=== PATIENT | female | born 1975 | race Caucasian/White ===

== ENCOUNTER → 2017-11-29 08:51 | Outpatient (CLI) | payer OTHER, SELFPAY ==
[2017-11-29 10:43] LABS: Alanine Aminotransferase 32 IU/L (9-52); Albumin 3.9 g/dL (3.5-5.0); Albumin Globulin Ratio 1.4 (1.0-2.8); Alkaline Phosphatase 71 U/L (38-126); Aspartate Aminotransferase 21 IU/L (14-36); Bilirubin Total 0.5 mg/dL (0.2-1.3); Blood Urea Nitrogen 12 mg/dL (7-17); Calcium 8.7 mg/dL (8.4-10.2); Carbon Dioxide 27 mmol/L (22-32); Chloride 103 mmol/L (98-107); Cholesterol 192 mg/dL (140-199); Estimated Glomerular Filt Rate > 60.0 mL/min (>60); Globulin 2.8 g/dL (1.7-4.1); Glucose 97 mg/dL (70-100); HDL Cholesterol 67 mg/dL (40-60); HEMOLYSIS < 15 (0-50); LDL Cholesterol Calculated 112 mg/dL (<100); Potassium 4.2 mmol/L (3.4-5.1); Sodium 139 mmol/L (137-145); Total Protein 6.7 g/dL (6.3-8.2); Triglycerides 64 mg/dL (35-150)
[2017-11-29 10:59] LABS: Free T3, Triiodothyronine Free 3.13 pg/mL (2.77-5.27); Free T4, Direct Thyroxine 0.85 ng/dL (0.78-2.19)
[2017-11-29 11:13] LABS: Ferritin 31.4 ng/mL (6.27-137); Thyroid Stimulating Hormone 0.84 uIU/mL (0.47-4.68)
[2017-11-30 15:34] LABS: Triiodothyronine T3 Total 114 ng/dL (76-181)
== END ==
PROVIDERS: PCP Physician Assistant; Visit Provider Physician Assistant
DX: Z00.00 Encounter for general adult medical examination without abnormal findings (principal); E03.9 Hypothyroidism, unspecified; Z51.81 Encounter for therapeutic drug level monitoring
CPT/HCPCS: 36415; 80053; 80061; 82728; 84439; 84443; 84480; 84481

== ENCOUNTER → 2018-01-03 12:55 | Outpatient (CLI) | payer OTHER, SELFPAY ==
[2018-01-03 13:37] LABS: Add Manual Diff / Slide Review NO; Basophils Percent Auto 0.6 % (0-2); Eosinophils Percent Auto 2.1 % (2-4); Hematocrit 43.1 % (36-46); Hemoglobin 14.6 g/dL (12.0-16.0); Lymphocytes Percent Auto 28.1 % (25-40); Mean Corpuscular HGB Conc 33.8 % (30-36); Mean Corpuscular Volume 94.7 fL (80-100); Monocytes Percent Auto 6.2 % (3-14); Neutrophils Absolute Auto 4700 /uL (3000-5900); Platelet Count 272 X10^3/uL (150-400); Red Blood Cell Count 4.55 X10^6/uL (4.0-5.2); Red Cell Distribution Width 13.3 % (11.6-14.8); White Blood Cell Count 7.5 X10^3/uL (4.5-11.0)
[2018-01-03 14:33] LABS: HEMOLYSIS < 15 (0-50); Iron 51 ug/dL (37-170)
[2018-01-03 14:36] LABS: Alanine Aminotransferase 27 IU/L (9-52); Albumin Globulin Ratio 1.4 (1.0-2.8); Alkaline Phosphatase 101 U/L (38-126); Aspartate Aminotransferase 22 IU/L (14-36); BUN Creatinine Ratio 23.8 (6-22); Bilirubin Total 0.4 mg/dL (0.2-1.3); Blood Urea Nitrogen 19 mg/dL (7-17); Calcium 8.8 mg/dL (8.4-10.2); Carbon Dioxide 26 mmol/L (22-32); Chloride 102 mmol/L (98-107); Estimated Glomerular Filt Rate > 60.0 mL/min (>60); Globulin 2.9 g/dL (1.7-4.1); Glucose 147 mg/dL (70-100); HEMOLYSIS < 15 (0-50); Potassium 3.7 mmol/L (3.4-5.1); Sodium 139 mmol/L (137-145); Total Protein 6.9 g/dL (6.3-8.2)
[2018-01-03 14:44] LABS: Percent Iron Saturation 14 % (15-50); Total Iron Binding Capacity 354 ug/dL (265-497); Transferrin 287 mg/dL (206-381)
[2018-01-03 15:05] LABS: Thyroid Stimulating Hormone 0.82 uIU/mL (0.47-4.68)
== END ==
PROVIDERS: Visit Provider Physician Assistant
DX: R53.83 Other fatigue (principal); N92.0 Excessive and frequent menstruation with regular cycle; R03.0 Elevated blood-pressure reading, without diagnosis of hypertension
CPT/HCPCS: 36415; 80053; 82728; 83540; 83550; 84443; 85025

== ENCOUNTER → 2018-01-04 09:30 | Outpatient (CLI) | payer OTHER, SELFPAY ==
[2018-01-04 16:02] LABS: Hemoglobin A1C% w Est Avg Glu 5.3 % (4.0-6.0)
== END ==
PROVIDERS: Family Provider Physician Assistant; PCP Physician Assistant; Visit Provider Physician Assistant
DX: R73.09 Other abnormal glucose (principal)
CPT/HCPCS: 83036

== ENCOUNTER → 2019-02-09 09:25 | Outpatient (CLI) | payer OTHER, SELFPAY ==
[2019-02-09 09:53] LABS: Hematocrit 44.4 % (36-46); Hemoglobin 15.2 g/dL (12.0-16.0); Mean Corpuscular HGB Conc 34.2 % (30-36); Mean Corpuscular Hemoglobin 31.8 PG (26-34); Mean Corpuscular Volume 92.9 fL (80-100); Platelet Count 317 X10^3/uL (150-400); Red Blood Cell Count 4.77 X10^6/uL (4.0-5.2); Red Cell Distribution Width 13.6 % (11.6-14.8); White Blood Cell Count 6.7 X10^3/uL (4.5-11.0)
[2019-02-09 10:07] LABS: Alanine Aminotransferase 40 IU/L (9-52); Albumin 3.9 g/dL (3.5-5.0); Albumin Globulin Ratio 1.3 (1.0-2.8); Alkaline Phosphatase 75 U/L (38-126); Aspartate Aminotransferase 33 IU/L (14-36); BUN Creatinine Ratio 23.3 (6-22); Bilirubin Total 0.7 mg/dL (0.2-1.3); Blood Urea Nitrogen 14 mg/dL (7-17); Calcium 8.9 mg/dL (8.4-10.2); Carbon Dioxide 27 mmol/L (22-32); Chloride 105 mmol/L (98-107); Cholesterol 222 mg/dL (140-199); Estimated Glomerular Filt Rate > 60.0 mL/min (>60); Glucose 109 mg/dL (70-100); HDL Cholesterol 45 mg/dL (40-60); HEMOLYSIS < 15 (0-50); LDL Cholesterol Calculated 156 mg/dL (<100); Sodium 137 mmol/L (137-145); Total Protein 6.9 g/dL (6.3-8.2); Triglycerides 106 mg/dL (35-150)
[2019-02-09 10:22] LABS: Creatinine Urine Random 166.3 mg/dL
== END ==
PROVIDERS: PCP Nurse Practitioner Family; Visit Provider Nurse Practitioner Family
DX: I10 Essential (primary) hypertension (principal); Z13.6 Encounter for screening for cardiovascular disorders; Z68.39 Body mass index [BMI] 39.0-39.9, adult
CPT/HCPCS: 36415; 80053; 80061; 82043; 82570; 85027

== ENCOUNTER 2019-05-25 07:21 | Day surgery (SDC) | payer OTHER, SELFPAY ==
[2019-05-23 13:34] VITALS: BMI 38.9
--- NOTE | 2019-05-25 | PATH_ITS ---
[facility] Accession Number: [id number] . 01 Material submitted: . endometrium - ENDOMETRIAL BIOPSY . 02 Diagnosis: Endometrial biopsy: Portions of weakly proliferative endometrium with patchy stromal breakdown; negative for glandular hyperplasia, cytologic atypia or malignancy. [facility] 05/28/2019 1006 Local . 02 Electronically signed: . Leah Correa MD, Pathologist NPI- [id number] . 01 Gross description: . ENDOMETRIAL BIOPSY: Received in formalin are minute fragments of mucoid and hemorrhagic material measuring 0.7 x 0.7 x 0.2 cm in aggregate. Submitted in toto in 1 cassette. /DM 05/25/20192013 Local . 02 Pathologist provided ICD-10: N85.00 . 02 CPT . 591274 Performed at: [address] [facility] [address] [id number] MD David Moore MD Phone: [phone] Performed at: 02 [facility] [address] [place], [place] [id number] MD Pat Stoddard MD Phone: [phone]
[2019-05-25 07:47] VITALS: BP 123/77; PULSE 81; RESP 20; TEMP 36.3; O2SAT 97; BMI 37.2
[2019-05-25] MEDS: LACTATED RINGERS 1,000 ML 42 ML IV (07:56)
--- NOTE | 2019-05-25 08:16 | PM.PREOP ---
Pre-operative Note Interval Note History & Physical reviewed/Exam performed by Physician: Yes Changes to H&P: No
--- NOTE | 2019-05-25 08:51 | SUR.OPER ---
Lithotomy on padded OR bed, head on pillow, arms secured on padded arm boards at <90 degrees abduction. Legs secured in padded yellow fins stirrups.
[2019-05-25 09:11] VITALS: BP 138/91; PULSE 84; RESP 21; O2SAT 93
[2019-05-25 09:16] VITALS: BP 123/87; PULSE 81; RESP 8; O2SAT 95
--- NOTE | 2019-05-25 09:20 | PM.GYNOP.1 ---
Operative Date/Time/Diagnoses Date of procedure: 05/25/19 Time of procedure: 08:45 Pre-op diagnosis: abnormal uterine bleeding Post-op diagnosis: same Procedure & Clinicians Procedure: Procedures Operation Date: 05/25/19 08:45 Actual Procedures Side Surgeon p Exam Under Anesthesia TRUST MANAGER, endometrial biopsy MD lilli Melendrez Mirena Intrauterine Device Insertion Germaine Gonzales MD Indications: Abnormal uterine bleeding Surgeon: Germaine Gonzales Anesthesia Type: Sedation Operative Notes Findings: Retroverted, retroflexed uterus. Otherwise normal-appearing cervix, vagina, vulva. Mild cystocele. Specimen(s): endometrial curettings Applied: device(s) (Mirena IUD) Estimated blood loss (mL): 5 Procedure in detail: After informed consent was obtained, the patient taken to the operating room where IV sedation was placed. She was placed in the dorsal lithotomy position, an exam under anesthesia was performed, and a right angle retractor placed in the posterior fourchette. The cervix was visualized on the anterior wall of the vagina. It was prepped with Betadine, and a tenaculum used to grasp the anterior lip of the cervix. An endometrial biopsy curette was used to obtain a sampling of the endometrial tissue with 3 passes. The uterus was sounded during this process symptom 9 cm. Mirena IUD insertion device was used to place the Mirena IUD at the uterine fundus without complication. The strings were trimmed to 2 cm. The tenaculum was removed from the cervix with good hemostasis noted. The retractor was removed from the vagina. The patient tolerated the procedure well was taken to PACU in stable condition. Complications: none Post-operative Condition: stable Disposition: PACU Plan for aftercare: Routine post IUD insertion care
[2019-05-25 09:22] VITALS: BP 122/78; PULSE 83; RESP 22; O2SAT 96
[2019-05-25 09:32] VITALS: BP 123/80; PULSE 74; RESP 20; TEMP 36.3; O2SAT 97
[2019-05-25 09:41] VITALS: BP 122/80; PULSE 75; RESP 18; TEMP 36.1; O2SAT 99
--- NOTE | 2019-05-25 09:59 | SUR.PHASEII ---
Gave patient & discharge instructions per Doctor.
== END 2019-05-25 10:01 | disposition home or self-care (01) ==
PROVIDERS: PCP Nurse Practitioner Family; Visit Provider Obstetrics & Gynecology
PROC: (CPT 57410; principal; 2019-05-25 08:45)
PROC: (CPT 58100; 2019-05-25 08:45)
DX: N85.00 Endometrial hyperplasia, unspecified (principal); Z30.430 Encounter for insertion of intrauterine contraceptive device
CPT/HCPCS: 58100; 58300; J7298

== ENCOUNTER → 2019-06-29 11:25 | Outpatient (CLI) | payer OTHER, SELFPAY ==
[2019-06-29 11:57] LABS: Alanine Aminotransferase 19 IU/L (<35); Albumin 3.8 g/dL (3.5-5.0); Albumin Globulin Ratio 1.3 (1.0-2.8); Alkaline Phosphatase 79 U/L (38-126); Aspartate Aminotransferase 23 IU/L (14-36); BUN Creatinine Ratio 18.3 (6-22); Bilirubin Total 0.5 mg/dL (0.2-1.3); Blood Urea Nitrogen 11 mg/dL (7-17); Calcium 8.8 mg/dL (8.4-10.2); Carbon Dioxide 28 mmol/L (22-32); Chloride 106 mmol/L (98-107); Estimated Glomerular Filt Rate > 60.0 mL/min (>60); Glucose 92 mg/dL (70-100); HEMOLYSIS < 15 (0-50); Potassium 4.2 mmol/L (3.4-5.1); Sodium 140 mmol/L (137-145); Total Protein 6.8 g/dL (6.3-8.2)
== END ==
PROVIDERS: PCP Nurse Practitioner Family; Visit Provider Physician Assistant
DX: J32.9 Chronic sinusitis, unspecified (principal); M79.89 Other specified soft tissue disorders
CPT/HCPCS: 36415; 80053

== ENCOUNTER → 2019-10-22 08:26 | Outpatient (CLI) | payer OTHER, SELFPAY ==
[2019-10-22 09:53] LABS: Cholesterol 158 mg/dL (140-199); HDL Cholesterol 47 mg/dL (40-60); LDL Cholesterol Calculated 91 mg/dL (<100); Triglycerides 100 mg/dL (35-150)
[2019-10-22 10:16] LABS: TSH w/ Reflex to FT4 1.09 uIU/mL (0.47-4.68)
== END ==
PROVIDERS: PCP Nurse Practitioner Family; Referring Provider Nurse Practitioner Family; Visit Provider Nurse Practitioner Family
DX: E78.2 Mixed hyperlipidemia (principal); Z68.39 Body mass index [BMI] 39.0-39.9, adult
CPT/HCPCS: 36415; 80061; 84443

== ENCOUNTER → 2019-12-14 07:54 | Outpatient (CLI) | payer OTHER, SELFPAY ==
--- NOTE | 2019-12-14 07:54 | DI.US.S_ITS ---
PROCEDURE: US PELVIC COMPLETE INDICATIONS: IUD PLACEMENT TECHNIQUE: Real-time scanning was performed of the pelvic organs, with image documentation. Additional endovaginal scanning was necessary due to incomplete visualization of the adnexal and endometrial structures by transabdominal scanning. COMPARISON: [facility], US, US PELVIC COMPLETE, 05/09/2019, 12:58. FINDINGS: Transabdominal scanning: Limited scanning through the kidneys shows no hydronephrosis. No pathologic free abdominal or pelvic fluid. Endovaginal scanning: Uterus: Uterus is normal in size at 9.9 x 6 x 7.3 cm. The endometrium measures 7.0 mm in combined thickness. Intrauterine device in expected position. Ovaries: Bilateral simple ovarian cysts measuring up to 2.7 cm on the right and 2.4 cm on the left. Ovaries otherwise are normal. IMPRESSION: 1. Intrauterine device in expected position. 2. Bilateral simple ovarian cysts. Dictated by: Marin ROBERTS Interpreted: Cal Yeager MD on 12/14/2019 at 9:01 Approved by: Cal Yeager M.D. on 12/14/2019 at 14:02
== END ==
PROVIDERS: PCP Nurse Practitioner Family; Referring Provider Nurse Practitioner Family; Visit Provider Obstetrics & Gynecology
DX: R10.2 Pelvic and perineal pain (principal); N83.292 Other ovarian cyst, left side; N83.291 Other ovarian cyst, right side; Z97.5 Presence of (intrauterine) contraceptive device
CPT/HCPCS: 76830; 76856

== ENCOUNTER → 2020-08-02 09:17 | Outpatient (CLI) | payer OTHER, SELFPAY ==
[2020-08-02 10:14] LABS: Hemoglobin 14.5 g/dL (12.0-16.0); Mean Corpuscular HGB Conc 33.8 % (30-36); Mean Corpuscular Hemoglobin 31.9 PG (26-34); Mean Corpuscular Volume 94.5 fL (80-100); Platelet Count 254 X10^3/uL (150-400); Red Blood Cell Count 4.55 X10^6/uL (4.0-5.2); Red Cell Distribution Width 12.8 % (11.6-14.8); White Blood Cell Count 8.5 X10^3/uL (4.5-11.0)
[2020-08-02 10:54] LABS: Alanine Aminotransferase 16 IU/L (<35); Albumin 3.6 g/dL (3.5-5.0); Albumin Globulin Ratio 1.5 (1.0-2.8); Alkaline Phosphatase 74 U/L (38-126); Aspartate Aminotransferase 19 IU/L (14-36); BUN Creatinine Ratio 21.2 (6-22); Bilirubin Total 0.6 mg/dL (0.2-1.3); Blood Urea Nitrogen 14 mg/dL (7-17); Calcium 9.2 mg/dL (8.4-10.2); Carbon Dioxide 28 mmol/L (22-32); Chloride 105 mmol/L (98-107); Cholesterol 148 mg/dL (140-199); Estimated Glomerular Filt Rate > 60.0 mL/min (>60); Globulin 2.4 g/dL (1.7-4.1); Glucose 110 mg/dL (70-100); HDL Cholesterol 52 mg/dL (40-60); HEMOLYSIS < 15 (0-50); LDL Cholesterol Calculated 85 mg/dL (<100); Magnesium 1.9 mg/dL (1.6-2.3); Potassium 4.3 mmol/L (3.4-5.1); Sodium 137 mmol/L (137-145); Triglycerides 55 mg/dL (35-150)
[2020-08-05 14:49] LABS: Hemoglobin A1C% w Est Avg Glu 5.5 % (4.0-6.0)
== END ==
PROVIDERS: PCP Nurse Practitioner Family; Referring Provider Nurse Practitioner Family; Visit Provider Nurse Practitioner Family
DX: Z00.00 Encounter for general adult medical examination without abnormal findings (principal); R07.9 Chest pain, unspecified; F41.9 Anxiety disorder, unspecified; E78.2 Mixed hyperlipidemia; R73.09 Other abnormal glucose
CPT/HCPCS: 36415; 80053; 80061; 83036; 83735; 84443; 85027

== ENCOUNTER 2020-12-05 15:03 | Emergency (ER) | payer OTHER, SELFPAY ==
[2020-12-05 15:28] VITALS: BP 132/88; PULSE 80; RESP 18; TEMP 36.9; O2SAT 99
== END 2020-12-05 18:47 | disposition left against medical advice (07) ==
PROVIDERS: Emergency Provider Emergency Medicine; PCP Nurse Practitioner Family
DX: R10.9 Unspecified abdominal pain (principal)
CPT/HCPCS: 99281

== ENCOUNTER 2020-12-06 09:04 | Emergency (ER) | payer OTHER, SELFPAY ==
[2020-12-06 09:15] VITALS: BP 136/96; PULSE 85; RESP 16; TEMP 36.7; O2SAT 99; BMI 39.9
--- NOTE | 2020-12-06 10:01 | ED.GENADULT ---
HPI - General Adult General Chief complaint: Abdominal Pain Stated complaint: STOMACH PAIN, THINKS HERNIA Time Seen by Provider: 12/06/20 09:27 Source: patient Mode of arrival: Ambulatory Limitations: no limitations History of Present Illness HPI narrative: 45-year-old woman with history of hypertension and hyperlipidemia was lifting a case of water yesterday and felt pain in the superior portion of her umbilicus that has continued over the next 24 hours. Feels a bit swollen and she is concerned that she may have an umbilical hernia. She is not having any vomiting, diarrhea, bloody stool she is able to pass gas has had a regular bowel movement and has no fevers or generalized abdominal pain. Related Data Home Medications Medication Instructions Recorded Confirmed levonorgestrel 20 mcg/24 hours (6 INTRAUTERINE 06/29/19 12/05/20 yrs) 52 mg intrauterine device (Mirena) Previous Rx's Medication Instructions Recorded hydroxyzine pamoate 25 mg capsule 25 mg PO BID PRN #90 cap 07/29/20 triamterene 37.5 See Rx Instructions .ROUTE 11/06/20 mg-hydrochlorothiazide 25 mg tablet .COMPLEX #90 tablet buspirone 5 mg tablet 5 mg PO BID #90 tab 11/18/20 pravastatin 20 mg tablet 20 mg PO DAILY #90 tab 11/18/20 scopolamine base 1 mg over 3 days 1 patch TRANSDERMAL Q3D PRN #10 ea 11/18/20 transdermal patch Allergies Allergy/AdvReac Type Severity Reaction Status Date / Time bee venom protein (honey bee) Allergy Severe Anaphylaxis Verified 12/05/20 15:28 codeine [CODEINE] Allergy Severe violently Verified 12/05/20 15:28 ill atorvastatin Allergy Headaches Verified 12/05/20 15:28 and LE cramping Review of Systems Review of Systems Narrative: Remainder of complete review of systems is otherwise unremarkable except for that included in the HPI. Patient History Medical History Anxiety Bilateral hand swelling Hearing loss (1972) Heavy menstrual period History of morbid obesity Hypothyroidism (~10/2016) Left-sided chest pain (05/2020) Mixed hyperlipidemia (02/2019) Painful menstrual periods Sinusitis Skin rash Snoring Witnessed episode of apnea Surgical History Anesthesia Status post knee surgery (02/22/16) Family History Grandfather Heart disease Grandmother Heart disease Hypertension High cholesterol Stroke Father No problems noted. Mother No problems noted. Social History Smoking Status: Current every day smoker Tobacco: How many years used: 20 quit status: considering quitting (Patient given smoking cessation handout) second hand exposure: No alcohol intake: current substance use type: does not use Smoking Status: Current every day smoker tobacco type: cigarettes alcohol intake frequency: 0-2 drinks per day Substance Use Type: does not use Exam Narrative Exam Narrative: General: Alert appropriate in no acute distress Respiratory: Able to speak in full sentences, no obvious respiratory distress Skin: No obvious rashes, warm and dry Abdomen: Small deficit superior portion of the umbilicus with fullness that is able to gently be reduced through the small hernia. Pain was significantly improved after manipulation in the emergency department Neurologic: Grossly intact no obvious asymmetries or abnormalities Psych: appropriate insight and affect, cooperative Initial Vital Signs Initial Vital Signs: Vital Signs Temperature 98.1 F 12/06/20 09:15 Pulse Rate 85 12/06/20 09:15 Respiratory Rate 16 12/06/20 09:15 Blood Pressure 136/96 H 12/06/20 09:15 Pulse Oximetry 99 12/06/20 09:15 Course Vital Signs Vital signs: Vital Signs - 8 hr 12/06/20 09:15 Temperature 98.1 F Pulse Rate 85 Respiratory Rate 16 Blood Pressure 136/96 H Pulse Oximetry 99 Medical Decision Making [facility] Narrative Medical decision making narrative: 45-year-old woman with acute umbilical pain on lifting yesterday physical exam is consistent with a small umbilical hernia that is easily reducible. It is reduced, techniques for reduction at home with needed are reviewed. Referral to outpatient surgery and recommendation to decrease heavy lifting over the next couple of days. Tylenol or ibuprofen if the small defect is tender. She is safe for home discharge Discharge Plan Departure Patient Disposition: Home Clinical Impression: Hernia, umbilical Qualifiers: Obstruction and gangrene presence: without obstruction or gangrene Qualified Code(s): K42.9 - Umbilical hernia without obstruction or gangrene Instructions: DI for Ventral Hernia Activity Restrictions/Additional Instructions: Thank you for coming in today You do have a small umbilical hernia. With gentle pressure we were able to reduce it and reduce your pain. You are capable of doing this at home. If it seems like it is dramatically bigger, you can not gently press it back in or you can no longer pass gas or having any blood in your stool he needs to come back in for further evaluation In the meantime, avoid heavy lifting for the next couple of days and please contact our general surgery group to schedule an outpatient appointment and discuss the need for any type of treatment. Prescriptions: No Action Mirena 20 mcg/24 hours (5 yrs) 52 mg intrauterine device intrauterine RF: 0 triamterene-hydrochlorothiazid 37.5-25 mg tablet See Rx Instructions .ROUTE .COMPLEX Qty: 90 RF: 3 hydroxyzine pamoate 25 mg capsule 25 mg PO BID PRN (Reason: panic attack(s)) Qty: 90 RF: 0 pravastatin 20 mg tablet 20 mg PO DAILY Qty: 90 RF: 2 scopolamine base 1 mg over 3 days patch 3 day 1 patch transdermal Q3D PRN (Reason: motion sickness) Qty: 10 RF: 2 buspirone 5 mg tablet 5 mg PO BID Qty: 90 RF: 3 Referrals: Ángel Blood ARNP [Primary Care Provider] - Pancho Escobar MD [Physician] -
== END 2020-12-06 10:08 | disposition home or self-care (01) ==
PROVIDERS: Emergency Provider Emergency Medicine; PCP Nurse Practitioner Family
DX: K42.9 Umbilical hernia without obstruction or gangrene (principal)
CPT/HCPCS: 99281

== ENCOUNTER → 2020-12-29 08:55 | Outpatient (CLI) | payer OTHER, SELFPAY ==
[2020-12-29 10:41] LABS: COVID19 -Nasal RAPID Negative (Negative)
== END ==
PROVIDERS: PCP Nurse Practitioner Family; Visit Provider Surgery
DX: Z20.822 Contact with and (suspected) exposure to COVID-19 (principal)
CPT/HCPCS: 87635; C9803

== ENCOUNTER 2020-12-30 10:33 | Day surgery (SDC) | payer OTHER, SELFPAY ==
[2020-12-23 13:55] VITALS: BMI 40.7
[2020-12-30] VITALS (7 sets, daily range): BP systolic 127–149; BP diastolic 70–93; PULSE 58–77; RESP 10–16; TEMP 36.6–36.9; O2SAT 92–98; BMI 40.7
[2020-12-30] MEDS: LACTATED RINGERS 1,000 ML 100 ML IV ×2 (11:40→13:46)
--- NOTE | 2020-12-30 12:18 | PM.HP.1 ---
History of Present Illness History of Present Illness Date Patient Seen: 12/30/20 Time Patient Seen: 12:18 Chief complaint: SDC Narrative: 45-year-old woman with a ventral hernia here for elective repair. Developed a buldge of the abdominal wall superior to the umbilicus several weeks ago after heavy lifting. Evaluated in ER reducible, no bowel obstruction. Currently feeling well. Pain when she lifts or stands improves when lying supine. Patient History Medical History Anxiety Bilateral hand swelling Hearing loss (1972) Heavy menstrual period History of morbid obesity HTN (hypertension) Hypothyroidism (~10/2016) Kidney stones Left-sided chest pain (05/2020) Mixed hyperlipidemia (02/2019) Painful menstrual periods Sinusitis Skin rash Snoring Witnessed episode of apnea Surgical History Anesthesia History of surgery (05/25/19) Status post knee surgery (02/22/16) Family & Social History Family History Grandfather Heart disease Grandmother Heart disease Hypertension High cholesterol Stroke Father No problems noted. Mother No problems noted. Tobacco & Substance use: Tobacco type cigarettes Smoking Status Current every day smoker Smoking packs per day 0.5 alcohol intake current alcohol intake frequency 0-2 drinks per day Substance Use Type does not use Meds Home Medications and Allergies Home Medications Medication Instructions Recorded Confirmed Type levonorgestrel 20 mcg/24 hours (6 1 device INTRAUTERINE CONT 06/29/19 12/23/20 History yrs) 52 mg intrauterine device (Mirena) triamterene 37.5 See Rx Instructions .ROUTE 11/06/20 12/23/20 Rx mg-hydrochlorothiazide 25 mg tablet .COMPLEX #90 tablet buspirone 5 mg tablet 5 mg PO BID #90 tab 11/18/20 12/23/20 Rx pravastatin 20 mg tablet 20 mg PO DAILY #90 tab 11/18/20 12/23/20 Rx scopolamine base 1 mg over 3 days 1 patch TRANSDERMAL Q3D PRN #10 ea 11/18/20 12/23/20 Rx transdermal patch Allergies Allergy/AdvReac Type Severity Reaction Status Date / Time bee venom protein (honey bee) Allergy Severe Anaphylaxis Verified 12/10/20 13:33 codeine [CODEINE] Allergy Severe violently Verified 12/10/20 13:33 ill atorvastatin Allergy Headaches Verified 12/10/20 13:33 and LE cramping Review of Systems Review of Systems ROS: Yes All systems reviewed with the patient and are negative except as otherwise documented Exam Vital Signs (past 8 hours): - 12/30/20 11:40 Temperature 98.4 F Pulse Rate 77 Respiratory Rate 16 Blood Pressure 141/88 H Pulse Oximetry 97 Oxygen Delivery Method Room Air Narrative Exam Narrative: GENERAL-obese adult female, no acute distress HEENT-no scleral icterus, hearing intact NECK-no JVD, trachea midline CVS- regular rate, no peripheral edema RESP-unlabored respiratory effort, no audible wheezing GI-reducible ventral hernia superior to the umbilicus fascial defect approximately 4 cm MSK-no cyanosis or clubbing, extremities without deformity SKIN-warm, dry NEURO-alert and oriented, no focal deficits PYSCH-Appropriate mood and affect Assessment & Plan Assessment & Plan narrative: 45F hx of obesity with a reducible ventral hernia. -Open ventral hernia repair with mesh I described to her the abdominal wall defect causing the hernia defect and recommended that we proceed with an open ventral hernia repair with mesh. We discussed both operative and non operative management as well as both laparoscopic and open technique. I described the technical details of the operation to her and the typical postoperative recovery. I described to her the surgical risks associated with the operation including bleeding, infection, hernia recurrence, chronic pain, damage to structures. Will proceed.
[2020-12-30] MEDS: ACETAMINOPHEN 325 MG TABLET 975 MG PO (12:20)
[2020-12-30] MEDS: SCOPOLAMINE 1 PATCH TOP (12:41)
[2020-12-30] MEDS: CEFAZOLIN 1 GM VIAL 2 GM IV (13:10)
--- NOTE | 2020-12-30 13:12 | SUR.OPER ---
Supine on padded OR bed, head on pillow, arms secured on padded arm boards at <90 degrees abduction, legs uncrossed, safety belt at thigh, tape over blanket over lower legs.
[2020-12-30] MEDS: BUPIVACAINE 0.25% (PF) VIAL 30 ML INJ (13:20)
--- NOTE | 2020-12-30 14:18 | PM.OP.1 ---
Operative Date/Time/Diagnoses Date of procedure: 12/30/20 Time of procedure: 14:18 Pre-op diagnosis: ventral hernia Post-op diagnosis: same Procedure & Clinicians Procedure: open ventral hernia repair with mesh Same procedure as scheduled: Yes Indications: reducible ventral hernia Surgeon: Pancho Escobar Click Yes if Unassisted: Yes Anesthesia Type: General Operative Notes Findings: 2 fascial defects. 3 cm fascial defect superior to umbilicus and a 2 cm defect at the umbilicus Specimen(s): none sent Estimated Blood Loss (mL): 30 Procedure in detail: Patient was brought to the operating room placed supine on the table. Bilateral lower extremity compression devices were applied. They received 2 g of Ancef prior to skin incision. Prepped and draped in sterile fashion. Time-out was performed. A midline incision of 4 cm was made superior to the umbilicus. Subcutaneous tissue was divided and the fascia was exposed. The fascia had a defect of approximately3 cm that was running from the umbilicus in a superior direction. The fascia was grasped elevated and sharply opened. There were minimal intra abdominal adhesions that were sharply lysed. There was a second fascial defect at the umbilicus that was 2 cm. A 8 x 6 Bard Ventralex mesh patch was selected. It was placed smooth side down on the peritoneum and the fascia was then secured in interrupted fashion to the mesh with Eithbond suture. The fascia was then closed in interrupted fashion along the midline. Hemostasis was checked. The subcutaneous tissue was then reapproximated using Vicryl skin closed with running 4-0 Vicryl followed by the application of Dermabond. Patient emerged from anesthesia was extubated and transferred to recovery room in stable condition. Complications: none Post-operative Condition: stable Disposition: same day surgery
--- NOTE | 2020-12-30 14:24 | SUR.PHASEI ---
Patient to recovery with anesth and RN. Report at bedside. Pt placed on 6L nasal cannula oxygen for o2 Sat 85% on room, waking up on arrival. Complaining of pain. Medicated by Dr Isaac. No airway support needed.
--- NOTE | 2020-12-30 14:30 | SUR.PHASEI ---
SBAR report at bedside to Quin LINARES
[2020-12-30] MEDS: fentaNYL 100 MCG/2 ML INJ IV ×2 (14:36→14:41)
[2020-12-30] MEDS: OXYCODONE IR 5 MG TABLET PO ×2 (14:42→15:04)
--- NOTE | 2020-12-30 16:26 | SUR.PREOP ---
1300 nursing assessment on the wrong patient. Cannot undo
== END 2020-12-30 16:01 | disposition home or self-care (01) ==
PROVIDERS: PCP Nurse Practitioner Family; Referring Provider Surgery; Visit Provider Surgery
PROC: (CPT 49560; principal; 2020-12-30 12:00)
DX: K43.9 Ventral hernia without obstruction or gangrene (principal); E78.5 Hyperlipidemia, unspecified; F17.210 Nicotine dependence, cigarettes, uncomplicated; F41.9 Anxiety disorder, unspecified; E66.01 Morbid (severe) obesity due to excess calories; Z68.41 Body mass index [BMI] 40.0-44.9, adult
CPT/HCPCS: 49560; 49568; 82962; C1781; J0330; J0690; J1100; J1170; J1885; J2250; J2405; J2704; J3010

== ENCOUNTER → 2021-01-05 13:08 | Outpatient (CLI) | payer OTHER, SELFPAY ==
[2021-01-05 13:12] LABS: Bacteria Urine None Seen; RBC Urine None Seen (0-5/HPF); WBC Urine None Seen (0-5/HPF)
[2021-01-05 13:44] LABS: Appearance Urine UA CLEAR; Bilirubin Urine UA NEGATIVE (NEGATIVE); Color Urine UA YELLOW; Glucose Urine UA NEGATIVE (Negative); Ketones Urine UA NEGATIVE (NEGATIVE); Leukocyte Esterase Urine UA NEGATIVE (NEGATIVE); Nitrite Urine UA NEGATIVE (Negative); Occult Blood Urine UA TRACE-LYSED (Negative); Protein Urine UA NEGATIVE (Negative); Specific Gravity Urine UA 1.015 (1.000-1.035); Urobilinogen Urine UA 0.2 E.U./dL (0.2)
[2021-01-05 13:45] LABS: Add Manual Diff / Slide Review NO; Basophils Absolute Auto 100 /uL (0-100); Basophils Percent Auto 0.9 % (0-2); Eosinophils Absolute Auto 300 /uL (0-450); Eosinophils Percent Auto 3.4 % (2-4); Hematocrit 46.1 % (36-46); Hemoglobin 15.7 g/dL (12.0-16.0); Lymphocytes Absolute Auto 2500 /uL (1100-4500); Lymphocytes Percent Auto 28.2 % (25-40); Mean Corpuscular Hemoglobin 32.2 PG (26-34); Mean Corpuscular Volume 94.8 fL (80-100); Monocytes Absolute Auto 600 /uL (0-900); Monocytes Percent Auto 6.8 % (3-14); Neutrophils Absolute Auto 5300 /uL (1500-7000); Neutrophils Percent Auto 60.7 % (50-75); Platelet Count 291 X10^3/uL (150-400); Red Blood Cell Count 4.86 X10^6/uL (4.0-5.2); Red Cell Distribution Width 13.2 % (11.6-14.8); White Blood Cell Count 8.8 X10^3/uL (4.5-11.0)
[2021-01-05 13:46] LABS: pH Urine UA 6.5 (4.5-8.0)
[2021-01-05 14:05] LABS: Culture Indicated Urine Cult Not Indicated
[2021-01-05 14:06] LABS: Squamous Epithelial Cell Urine 1-5 /HPF (0-5/HPF)
== END ==
PROVIDERS: PCP Nurse Practitioner Family; Referring Provider Surgery; Visit Provider Surgery
DX: R61 Generalized hyperhidrosis (principal); R31.9 Hematuria, unspecified
CPT/HCPCS: 36415; 81001; 85025

== ENCOUNTER → 2021-01-15 09:33 | Outpatient (CLI) | payer OTHER, SELFPAY ==
[2021-01-15 09:56] LABS: COVID19 -Nasal RAPID Negative (Negative)
== END ==
PROVIDERS: PCP Nurse Practitioner Family; Referring Provider Physician Assistant; Visit Provider Physician Assistant
DX: J02.9 Acute pharyngitis, unspecified (principal); R05 Cough; Z20.822 Contact with and (suspected) exposure to COVID-19
CPT/HCPCS: 87635

== ENCOUNTER → 2021-02-11 14:09 | Outpatient (CLI) | payer OTHER, SELFPAY ==
[2021-02-11 14:57] LABS: COVID19 -Nasal RAPID Negative (Negative)
== END ==
PROVIDERS: PCP Nurse Practitioner Family; Visit Provider Physician Assistant
DX: R43.2 Parageusia (principal); R43.0 Anosmia; Z20.822 Contact with and (suspected) exposure to COVID-19
CPT/HCPCS: 87635

== ENCOUNTER → 2021-03-17 13:16 | Outpatient (CLI) | payer OTHER, SELFPAY ==
--- NOTE | 2021-03-17 13:57 | DI.RAD.S_ITS ---
PROCEDURE: XR ABDOMEN 1V INDICATIONS: Change in bowel habits; assess stool burden TECHNIQUE: One view of the abdomen acquired. COMPARISON: None. FINDINGS: Surgical changes and devices: Intrauterine device in the midline pelvis. Bowel: Bowel gas pattern is normal. Moderate fecal debris in the right colon. Soft tissues: No suspicious abdominal calcifications. Visualized solid organ contours appear normal in size. Bones: No suspicious bony lesions. Mild bilateral acetabular joint space narrowing and small marginal osteophytes. IMPRESSION: Moderate fecal debris in the right colon. No obstruction. Approved by: Robert Mckeon M.D. on 03/17/2021 at 17:21
[2021-03-17 15:41] LABS: Adenovirus F 40/41 Detected (Not Detect); Astrovirus Not Detected (Not Detect); Campylobacter Not Detected (Not Detect); Clostridium difficile toxin AB Not Detected (Not Detect); Cryptosporidium Detected (Not Detect); Cyclospora cayetanensis Not Detected (Not Detect); Entamoeba histolytica Not Detected (Not Detect); Enteroaggregative E.coli Not Detected (Not Detect); Enteropathogenic E.coli Not Detected (Not Detect); Enterotoxigenic E.coli It/st Not Detected (Not Detect); Giardia lamblia Not Detected (Not Detect); Norovirus GI/GII Not Detected (Not Detect); Plesiomonsa shigelloides Not Detected (Not Detect); Rotavirus A Not Detected (Not Detect); Salmonella Not Detected (Not Detect); Sapovirus Not Detected (Not Detect); Shiga-like toxin-prod E.coli Not Detected (Not Detect); Shigella/Enteroinvasive E.coli Not Detected (Not Detect); Vibrio Not Detected (Not Detect); Vibrio cholerae Not Detected (Not Detect); Yersinia enterocolitica Not Detected (Not Detect)
== END ==
PROVIDERS: PCP Nurse Practitioner Family; Referring Provider Student in an Organized Health Care Education/Training Program; Visit Provider Student in an Organized Health Care Education/Training Program
DX: R19.7 Diarrhea, unspecified (principal)
CPT/HCPCS: 74018; 87205; 87507

== ENCOUNTER → 2021-03-21 10:04 | Outpatient (CLI) | payer OTHER, SELFPAY ==
[2021-03-23 18:54] LABS: HIV 1 & 2 Ab/Ag 4th Gen Combo NEGATIVE (NEGATIVE)
== END ==
PROVIDERS: PCP Nurse Practitioner Family; Referring Provider Student in an Organized Health Care Education/Training Program; Visit Provider Student in an Organized Health Care Education/Training Program
DX: A07.2 Cryptosporidiosis (principal)
CPT/HCPCS: 36415; 87389

== ENCOUNTER → 2022-06-30 11:33 | Outpatient (CLI) | payer OTHER, SELFPAY ==
[2022-06-30 12:44] LABS: Hemoglobin 16.3 g/dL (12.0-16.0); Mean Corpuscular Hemoglobin 32.6 PG (26-34); Platelet Count 251 X10^3/uL (150-400); Red Cell Distribution Width 13.1 % (11.6-14.8); White Blood Cell Count 7.2 X10^3/uL (4.5-11.0)
[2022-06-30 12:53] LABS: Hemoglobin A1C% w Est Avg Glu 5.3 % (4.0-6.0)
[2022-06-30 13:15] LABS: Alanine Aminotransferase 30 IU/L (<35); Albumin 4.3 g/dL (3.5-5.0); Albumin Globulin Ratio 1.4 (1.0-2.8); Alkaline Phosphatase 92 U/L (38-126); Aspartate Aminotransferase 28 IU/L (14-36); BUN Creatinine Ratio 20.9 (6-22); Bilirubin Total 0.8 mg/dL (0.2-1.3); Blood Urea Nitrogen 14 mg/dL (7-17); Calcium 9.5 mg/dL (8.4-10.2); Carbon Dioxide 27 mmol/L (22-32); Chloride 104 mmol/L (98-107); Estimated Glomerular Filt Rate > 60 mL/min (>60); Glucose 92 mg/dL (70-100); HEMOLYSIS < 15 (0-50); Potassium 4.8 mmol/L (3.4-5.1); Sodium 138 mmol/L (137-145); Total Protein 7.3 g/dL (6.3-8.2)
[2022-06-30 13:45] LABS: TSH w/ Reflex to FT4 0.58 uIU/mL (0.47-4.68)
== END ==
PROVIDERS: PCP Registered Nurse Diabetes Educator; Referring Provider Registered Nurse Diabetes Educator; Visit Provider Registered Nurse Diabetes Educator
DX: I10 Essential (primary) hypertension (principal); R73.9 Hyperglycemia, unspecified
CPT/HCPCS: 36415; 80053; 83036; 84443; 85027

== ENCOUNTER → 2024-09-25 16:11 | Outpatient (CLI) | payer OTHER, SELFPAY ==
--- NOTE | 2024-09-25 16:12 | DI.US.S_ITS ---
PROCEDURE: US SOFT TISSUE HEAD AND NECK INDICATIONS: Soft tissue mass above L clavicle near neck TECHNIQUE: Real-time scanning was performed of the neck region of interest, with image documentation. COMPARISON: None. FINDINGS: No hypoechoic or hyperechoic mass identified in the area of clinical interest involving the left supraclavicular fossa. No enlarged lymph nodes in the area of clinical interest. No soft tissue edema or fluid collections in the area of clinical interest. IMPRESSION: No sonographic abnormality identified in the area of clinical interest. Dictated by: Krystal Oreilly MD, PhD on 09/26/2024 at 9:12 Approved by: Krystal Oreilly MD, PhD on 09/26/2024 at 9:13
== END ==
PROVIDERS: PCP Registered Nurse Diabetes Educator; Referring Provider Physician Assistant; Visit Provider Physician Assistant
DX: M79.89 Other specified soft tissue disorders (principal); F17.200 Nicotine dependence, unspecified, uncomplicated
CPT/HCPCS: 76536

== ENCOUNTER → 2024-11-02 12:20 | Outpatient (CLI) | payer OTHER, SELFPAY ==
[2024-11-02 13:26] LABS: Add Manual Diff / Slide Review NO; Basophils Absolute Auto 0 /uL (0-100); Basophils Percent Auto 0.6 % (0-2); Eosinophils Absolute Auto 100 /uL (0-450); Eosinophils Percent Auto 1.9 % (2-4); Hematocrit 46.2 % (36-46); Hemoglobin 15.8 g/dL (12.0-16.0); Lymphocytes Absolute Auto 2000 /uL (1100-4500); Lymphocytes Percent Auto 26.1 % (25-40); Mean Corpuscular HGB Conc 34.3 % (30-36); Mean Corpuscular Hemoglobin 32.6 PG (26-34); Mean Corpuscular Volume 95.1 fL (80-100); Monocytes Absolute Auto 600 /uL (0-900); Monocytes Percent Auto 7.3 % (3-14); Neutrophils Absolute Auto 4900 /uL (1500-7000); Neutrophils Percent Auto 64.1 % (50-75); Platelet Count 239 X10^3/uL (150-400); Red Blood Cell Count 4.86 X10^6/uL (4.0-5.2); White Blood Cell Count 7.6 X10^3/uL (4.5-11.0)
[2024-11-02 13:42] LABS: Alanine Aminotransferase 28 IU/L (<35); Albumin 4.4 g/dL (3.5-5.0); Albumin Globulin Ratio 1.8 (1.0-2.8); Alkaline Phosphatase 83 U/L (38-126); Aspartate Aminotransferase 27 IU/L (14-36); BUN Creatinine Ratio 18.1 (6-22); Bilirubin Total 0.9 mg/dL (0.2-1.3); Blood Urea Nitrogen 13 mg/dL (7-17); Calcium 9.5 mg/dL (8.4-10.2); Carbon Dioxide 29 mmol/L (22-32); Chloride 103 mmol/L (98-107); Cholesterol 259 mg/dL (140-199); Estimated Glomerular Filt Rate > 60 mL/min (>60); Globulin 2.4 g/dL (1.7-4.1); Glucose 96 mg/dL (70-99); HDL Cholesterol 63 mg/dL (40-60); HEMOLYSIS < 15 (0-50); LDL Cholesterol Calculated 175 mg/dL (<100); Potassium 4.5 mmol/L (3.4-5.1); Sodium 139 mmol/L (137-145); Total Protein 6.8 g/dL (6.3-8.2); Triglycerides 107 mg/dL (35-150)
[2024-11-02 16:14] LABS: Free T4, Direct Thyroxine 1.02 ng/dL (0.78-2.19)
== END ==
PROVIDERS: PCP Registered Nurse Diabetes Educator; Referring Provider Registered Nurse Diabetes Educator; Visit Provider Registered Nurse Diabetes Educator
DX: E78.2 Mixed hyperlipidemia (principal); I10 Essential (primary) hypertension
CPT/HCPCS: 36415; 80053; 80061; 84439; 84443; 85025